=== PATIENT | male | born 1990 | race Caucasian/White ===

== ENCOUNTER 2022-03-27 17:33 | Emergency (ER) | payer OTHER ==
[2022-03-27 18:04] VITALS: BP 139/83; PULSE 111; TEMP 99.4; BMI 27.8
[2022-03-27] MEDS ORDERED: KETOROLAC TROMETHAMINE 30 MG/1 ML VIAL IM ONE (18:47)
== END 2022-03-27 19:38 | disposition home or self-care (01) ==
LOC: JERFT 17:33
PROC: 3E0233Z Introduction of Anti-inflammatory into Muscle, Percutaneous Approach (ICD-10-PCS; principal; 2022-03-27)
DX: M54.50 Low back pain, unspecified (principal); V89.2XXA Person injured in unspecified motor-vehicle accident, traffic, initial encounter; Y92.9 Unspecified place or not applicable
CPT/HCPCS: 99284-25